=== PATIENT | female | born 1990 ===

== ENCOUNTER 2017-08-03 10:44 | Emergency (ER) | payer MEDICAID ==
[2017-08-03 10:48] VITALS: BMI 27.3
[2017-08-03 10:49] VITALS: BP 117/66; PULSE 75; RESP 16; TEMP 98.3; O2SAT 100
--- NOTE | 2017-08-03 11:11 | ED PDOC ---
HPI: Female Pain Time Seen by Provider: 08/03/17 10:50 Chief Complaint (Nursing): Female Genitourinary History Per: Patient Current Symptoms Are (Timing): Still Present Severity: Moderate Pain Scale Rating Of: 1 Quality Of Discomfort: Burning Associated Symptoms: Back Pain. denies: Fever Alleviating Factors: None Additional Complaint(s): Vaginal burning and itching x 3 months. Has been tx'ed with ? antibiotics and ? antifungal cream with no improvement. Denies fever or abd pain but does c/o left lower back pain. denies urinary frequency. Sexually active inconsistent condom use. Also noted scant yellow green discharge Abnormal Vaginal Bleeding: No Past Medical History Vital Signs: Last Vital Signs Temp 98.3 F 08/03/17 10:48 Pulse 75 08/03/17 10:48 Resp 16 08/03/17 10:48 BP 117/66 08/03/17 10:48 Pulse Ox 100 08/03/17 10:48 - Medical History PMH: Anemia - Family History Family History: States: Unknown Family Hx - Home Medications Home Medications: Ambulatory Orders Medication Instructions Recorded Vitamins [Prelan F.a] 1 tab PO DAILY 06/18/15 Ciprofloxacin HCl [Cipro] 500 mg PO BID #20 tab 08/03/17 Metronidazole [Metrogel-Vaginal] 1 ea VG TID #1 gel 08/03/17 - Allergies Allergies/Adverse Reactions: Allergies Allergy/AdvReac Type Severity Reaction Status Date / Time No Known Allergies Allergy Verified 06/23/15 19:20 Review of Systems Constitutional: Negative for: Fever Genitourinary Female: Positive for: Dysuria, Vaginal Discharge Musculoskeletal: Positive for: Back Pain Physical Exam - Physical Exam Appears: Positive for: Non-toxic, No Acute Distress Skin: Positive for: Normal Color, Warm, DRY Gastrointestinal/Abdominal: Positive for: Bowel Sounds, Soft. Negative for: Tenderness Pelvic Exam: Positive for: External Exam Normal, No Cerv. Motion Tender, No Masses, Discharge (Scant yellow clear non foul smelling). Negative for: Active Bleeding, Cervicitis, Tender Adnexa, Tender Uterus Back: Negative for: L CVA Tenderness, R CVA Tenderness - ECG O2 Sat by Pulse Oximetry: 100 Disposition - Clinical Impression Clinical Impression: Urinary tract infection, Vaginitis - Patient ED Disposition Is Patient to be Admitted: No Counseled Patient/Family Regarding: Studies Performed, Diagnosis, Need For Followup, Rx Given - Disposition [facility] Disposition: Routine/Home Disposition Time: 11:13 Condition: FAIR Prescriptions: Ciprofloxacin HCl [Cipro] 500 mg PO BID #20 tab Metronidazole [Metrogel-Vaginal] 1 ea VG TID #1 gel Instructions: Vaginitis (ED), Urinary Tract Infection in Women (ED) Print Language: FAROESE
== END 2017-08-03 11:23 | disposition home or self-care (01) ==
LOC: H.ER 10:44
DX: N39.0 Urinary tract infection, site not specified (principal); N76.0 Acute vaginitis

== ENCOUNTER 2017-08-16 19:31 | Emergency (ER) | payer MEDICAID ==
[2017-08-16 19:31] VITALS: BMI 27.3
[2017-08-16 19:37] VITALS: BP 128/85; PULSE 80; RESP 18; TEMP 99; O2SAT 100
[2017-08-16] MEDS ORDERED: Fluconazole 150 MG TAB PO ONE (20:19)
[2017-08-16 20:24] LABS: BASO % 0.6 % (0.0-2.0); EOS % 0.6 % (0.0-4.0); HEMATOCRIT 37.3 % (34.0-47.0); LYMPH # 3.2 K/uL (1.0-4.3); LYMPH % 37.4 % (20.0-40.0); MEAN CELL VOLUME 88.3 fl (81.0-99.0); MEAN CORPUSCULAR HEMOGLOBIN 28.6 pg (27.0-31.0); MEAN CORPUSCULAR HGB CONC 32.4 g/dL (33.0-37.0); MEAN PLATELET VOLUME 8.6 fl (7.2-11.7); MONO # 0.6 K/uL (0.0-0.8); MONO % 7.5 % (0.0-10.0); NEUT # 4.6 K/uL (1.8-7.0); NEUT % 53.9 % (50.0-75.0); NRBC % 0.1 % (0.0-0.0); RED CELL DISTRIBUTION WIDTH 13.7 % (11.5-14.5); WHITE BLOOD COUNT 8.5 K/uL (4.8-10.8)
--- NOTE | 2017-08-16 20:28 | ED PDOC ---
HPI: Abdomen Time Seen by Provider: 08/16/17 19:39 Chief Complaint (Nursing): Abdominal Pain Chief Complaint (Provider): Abnormal Vaginal Discharge History Per: Patient History/Exam Limitations: no limitations Onset/Duration Of Symptoms: Days (x1 month) Current Symptoms Are (Timing): Still Present Associated Symptoms: Fever (occasional fevers) Additional Complaint(s): Dee Simpson, a 26 year old female, presents to the ED with one month of green and white abdominal discharge. The patient states that she has also been experiencing some suprapubic pain and dysuria. She reports that she was seen in the ED before for the same symptoms and was prescribed antibiotics but she did not complete the course. The patient states that she is sexually active with one partner and it is the same for her partner. Patient notes occasional fevers. PMD: Yang Velazco Abnormal Vaginal Bleeding: No Past Medical History Reviewed: Historical Data, Nursing Documentation, Vital Signs Vital Signs: Last Vital Signs Temp 99 F 08/16/17 19:33 Pulse 80 08/16/17 19:33 Resp 18 08/16/17 19:33 BP 128/85 08/16/17 19:33 Pulse Ox 100 08/16/17 23:25 - Medical History PMH: Anemia - Surgical History Surgical History: No Surg Hx - Family History Family History: States: Unknown Family Hx - Home Medications Home Medications: Ambulatory Orders Medication Instructions Recorded Vitamins [Prelan F.a] 1 tab PO DAILY 06/18/15 Ciprofloxacin HCl [Cipro] 500 mg PO BID #20 tab 08/03/17 Metronidazole [Metrogel-Vaginal] 1 ea VG TID #1 gel 08/03/17 Nitrofurantoin Macrocrystals 100 mg PO BID 5 Days cap 08/16/17 [Macrobid] - Allergies Allergies/Adverse Reactions: Allergies Allergy/AdvReac Type Severity Reaction Status Date / Time No Known Allergies Allergy Verified 06/23/15 19:20 Review of Systems ROS Statement: Except As Marked, All Systems Reviewed And Found Negative Constitutional: Positive for: Fever (occasional fevers) Genitourinary Female: Positive for: Dysuria, Vaginal Discharge (white and green vaginal discharge), Other (suprapubic pain) Physical Exam - Reviewed Nursing Documentation Reviewed: Yes Vital Signs Reviewed: Yes - Physical Exam Appears: Positive for: Non-toxic, No Acute Distress Head Exam: Positive for: ATRAUMATIC, NORMAL INSPECTION, NORMOCEPHALIC Skin: Positive for: Normal Color, Warm, Dry. Negative for: Rash Eye Exam: Positive for: Normal appearance, EOMI, PERRL. Negative for: Nystagmus Neck: Positive for: Normal, Painless ROM, Supple Cardiovascular/Chest: Positive for: Regular Rate, Rhythm, Chest Non Tender. Negative for: Tachycardia Respiratory: Positive for: Normal Breath Sounds. Negative for: Rales, Rhonchi, Wheezing, Respiratory Distress Gastrointestinal/Abdominal: Positive for: Normal Exam, Bowel Sounds, Soft. Negative for: Tenderness, Mass, Guarding Pelvic Exam: Positive for: External Exam Normal, Discharge (cottage cheese like discharge surrounding vaginal vault; Witness- Montse), Other. Negative for: No Cerv. Motion Tender, Blood, Tender Adnexa Back: Positive for: Normal Inspection. Negative for: L CVA Tenderness, R CVA Tenderness Extremity: Positive for: Normal ROM. Negative for: Tenderness, Pedal Edema, Deformity, Swelling Lymphatic: Positive for: Normal Exam. Negative for: Adenopathy Neurologic/Psych: Positive for: Alert, Oriented, Gait - Laboratory Results Result Diagrams: 08/16/17 20:20 08/16/17 20:20 - ECG O2 Sat by Pulse Oximetry: 100 (RA) Pulse Ox Interpretation: Normal Medical Decision Making Medical Decision Makin Initial Impression Candidiasis vs UTI Initial Plan: * BMP * Upreg * Udip * CBC * Chlamydia/GC RNA * Diflucan 150mg PO * Urine Culture * US transvaginal * Transvaginal US * Reevaluation Time: 2206 --US transvag FINDINGS: Uterus/cervix: Unremarkable in echogenicity and size. Normal endometrial stripe thickness. No myometrial mass. Right ovary: Unremarkable in echogenicity and size. No mass. Normal blood flow. Left ovary: Unremarkable in echogenicity and size. No mass. Normal blood flow. Free fluid: No free fluid. IMPRESSION: Unremarkable sonographic evaluation of the pelvis, as detailed above 2230 Pt. 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 Return precautions given. Scribe Attestation Documented by Ellen Maravilla acting as a scribe for Tyson Esposito MD. Provider Attestation: All medical record entries made by the Scribe were at my direction and personally dictated by me. I have reviewed the chart and agree that the record accurately reflects my personal performance of the history, physical exam, medical decision making, and the department course for this patient. I have also personally directed, reviewed, and agree with the discharge instructions and disposition. Disposition - Clinical Impression Clinical Impression: Yeast infection, UTI (urinary tract infection) - Disposition [facility]errals[facility]] Disposition: Routine/Home Disposition Time: 22:30 Condition: STABLE Prescriptions: Nitrofurantoin Macrocrystals [Macrobid] 100 mg PO BID 5 Days cap Instructions: Urinary Tract Infection in Women (DC), Vulvovaginal Candidiasis ( ED) Forms: [facility] (Malawian) Print Language: LAO
[2017-08-16 20:43] LABS: BLOOD UREA NITROGEN 16 mg/dl (7-17); CALCIUM 9.5 mg/dL (8.4-10.2); CARBON DIOXIDE 24 mmol/L (22-30); CHLORIDE 105 mmol/L (98-107); GFR AFRICAN-AMERICAN > 60; GLUCOSE,RANDOM 94 mg/dL (65-105); POTASSIUM 3.9 MMOL/L (3.6-5.0); SODIUM 141 mmol/l (132-148)
--- NOTE | 2017-08-17 10:44 | US ---
HISTORY: lower abd pain/pelvic pain COMPARISON: Transvaginal pelvic ultrasound performed 11/16/14 TECHNIQUE: Transvaginal pelvic ultrasound. FINDINGS: UTERUS: Measures 7.7 x 3.7 x 5.0 cm. Anteverted. ENDOMETRIUM: Measures 7 mm in diameter. CERVIX: No cervical abnormality identified. RIGHT OVARY: Measures 2.1 x 1.9 x 1.8 cm. Blood flow is demonstrated. LEFT OVARY: Measures 2.7 x 1.4 x 2.2 cm. Blood flow is demonstrated. FREE FLUID: No significant free fluid noted. OTHER FINDINGS: None. IMPRESSION: Unremarkable pelvic ultrasound. Preliminary impression was provided by [facility].
== END 2017-08-16 23:25 | disposition home or self-care (01) ==
LOC: H.ER 19:31
DX: N39.0 Urinary tract infection, site not specified (principal); B37.9 Candidiasis, unspecified

== ENCOUNTER 2018-04-09 13:20 | Emergency (ER) | payer MEDICAID ==
[2018-04-09 13:21] VITALS: BMI 27.3
[2018-04-09 13:34] VITALS: O2SAT 100
--- NOTE | 2018-04-09 13:58 | ED PDOC ---
HPI: Headache Time Seen by Provider: 04/09/18 13:36 Chief Complaint (Nursing): Headache Chief Complaint (Provider): Headache History Per: Patient History/Exam Limitations: no limitations Onset/Duration Of Symptoms: Days Current Symptoms Are (Timing): Still Present Additional Complaint(s): 27 year old female presents to the emergency department with a complaint of a constant gradual onset headache to the left side periorbital region x4 days. Associated with photophobia and phonophobia, has had similar headaches in the past. Denies fever, nausea, vomiting, or any upper respiratory symptoms such as nose congestion, cough, or shortness of breath. Dr. Yang Irizarry MD Past Medical History Reviewed: Historical Data, Nursing Documentation, Vital Signs Vital Signs: Last Vital Signs Temp 98.5 F 04/09/18 13:30 Pulse 66 04/09/18 13:30 Resp 16 04/09/18 13:30 BP 119/73 04/09/18 13:30 Pulse Ox 100 04/09/18 13:30 - Medical History PMH: Anemia - Surgical History Surgical History: No Surg Hx - Family History Family History: States: Unknown Family Hx - Social History Current smoker - smoking cessation education provided: No Alcohol: None Drugs: Denies - Home Medications Home Medications: Ambulatory Orders Medication Instructions Recorded Vitamins [Prelan F.a] 1 tab PO DAILY 06/18/15 Ciprofloxacin HCl [Cipro] 500 mg PO BID #20 tab 08/03/17 Metronidazole [Metrogel-Vaginal] 1 ea VG TID #1 gel 08/03/17 Nitrofurantoin Macrocrystals 100 mg PO BID 5 Days cap 08/16/17 [Macrobid] Metoclopramide HCl [Reglan] 10 mg PO QID PRN #20 tablet 04/09/18 Naproxen 500 mg PO BID #30 tab 04/09/18 - Allergies Allergies/Adverse Reactions: Allergies Allergy/AdvReac Type Severity Reaction Status Date / Time No Known Allergies Allergy Verified 04/09/18 13:30 Review of Systems ROS Statement: Except As Marked, All Systems Reviewed And Found Negative (As per HPI, otherwise negative) Constitutional: Negative for: Fever Eyes: Positive for: Other (photophobia) ENT: Positive for: Other (phonophobia ). Negative for: Nose Congestion Respiratory: Negative for: Cough, Shortness of Breath Gastrointestinal: Negative for: Nausea, Vomiting Neurological: Positive for: Headache (Constant pain to the left side periorbital region) Physical Exam - Reviewed Nursing Documentation Reviewed: Yes Vital Signs Reviewed: Yes - Physical Exam Comments: GENERAL APPEARANCE: Patient is awake, alert, oriented x 3, in no acute distress , laying comfortably in bed. SKIN: Warm, dry; (-) cyanosis; (-) rash. HEAD: (-) scalp swelling or tenderness, (-) temporal artery tenderness. EYES: (-) conjunctival pallor, (-) scleral icterus. ENMT: (-) sinus tenderness; mucous membranes are moist. NECK: (-) tenderness, (-) stiffness, (-) meningismus, (-) lymphadenopathy. CHEST AND RESPIRATORY: (-) rales, (-) rhonchi, (-) wheezes; breath sounds equal bilaterally. HEART AND CARDIOVASCULAR: (-) irregularity; (-) murmur, (-) gallop. ABDOMEN AND GI: Soft; (-) tenderness. EXTREMITIES: (-) deformity. NEURO AND PSYCH: Mental status as above. 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 Strength and DTRs symmetric. - ECG O2 Sat by Pulse Oximetry: 100 (RA) Pulse Ox Interpretation: Normal Medical Decision Making Medical Decision Making: Time: 1341 Initial impression: Migraine headache Initial plan: Toradol 60 mg IM Reglan 10 mg PO Urine preg (-) Reevaluation Time: Upon reevaluation, patient reports improvement of headache. Repeat of neuro exam shows no acute focal findings. Normal and medically stable for discharge. Advised to follow up with pmd. Given Rxs. Advised to follow up with primary care physician in 1-2 days without fail. Advised to take medication as prescribed. Return to the emergency room at any time for any new or worsening symptoms. Patient states she fully agrees with and understands discharge instructions. States that she agrees with the plan and disposition. Verbalized and repeated discharge instructions and plan. I have given the patient opportunity to ask any additional questions. Clinical Impression: Scribe Attestation: Documented by Marlene Higgins, acting as a scribe for Alyson Kerr PA-C. Provider Scribe Attestation: All medical record entries made by the Scribe were at my direction and personally dictated by me. I have reviewed the chart and agree that the record accurately reflects my personal performance of the history, physical exam, medical decision making, and the department course for this patient. I have also personally directed, reviewed, and agree with the discharge instructions and disposition. Disposition - Clinical Impression Clinical Impression: Headache - Patient ED Disposition Is Patient to be Admitted: No Counseled Patient/Family Regarding: Diagnosis, Need For Followup, Rx Given - Disposition Disposition: Routine/Home Disposition Time: 14:45 Condition: STABLE Additional Instructions: Thank you for letting us take care of you today. You were treated for headache - migraine. The emergency medical care you received today was directed at your acute symptoms. If you were prescribed any medication, please fill it and take as directed. It may take several days for your symptoms to resolve. Return to the Emergency Department if your symptoms worsen, do not improve, or if you have any other problems. Please contact your doctor in 2 days for re-evaluation and follow up. Bring any paperwork you were given at discharge with you along with any medications you are taking to your follow up visit. Our treatment cannot replace ongoing medical care by a primary care provider (PCP) outside of the emergency department. Thank you for allowing the [facility] team to be part of your care today. 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
[2018-04-09 15:42] VITALS: BP 118/76; PULSE 78; RESP 18; TEMP 98
== END 2018-04-09 15:45 | disposition home or self-care (01) ==
LOC: H.ER 13:20
DX: R51 Headache (principal)
CPT/HCPCS: 81025; 96372; 99285; J1885